=== PATIENT | female | born 1990 | race Hispanic/Latino ===

== ENCOUNTER 2020-07-21 19:45 | Emergency (ER) | payer OTHER, SELFPAY ==
[2020-07-21 20:03] VITALS: BP 130/71; PULSE 93; RESP 20; TEMP 36.4; O2SAT 100
[2020-07-21 20:06] VITALS: BP 130/71; PULSE 93; RESP 20; TEMP 36.4; O2SAT 100
--- NOTE | 2020-07-21 20:28 | ED.HA ---
HPI - Headache General Chief Complaint: Headache Stated Complaint: Head Pain,Dizzy Time Seen by Provider: 07/21/20 20:12 Source: patient and RN notes reviewed Mode of arrival: ambulatory Limitations: language barrier (Patient refused use of infantry weapons crewmember. ) History of Present Illness HPI Narrative: Patient presents today complaining of a 1 week history of frontal headache behind both of her eyes that extends to the left parietal area. Headache began after she was exposed to Lysol in both of her eyes while at work at [employer], a [employer]. Associated symptoms include dizziness, nausea, and photophobia. Pain is exacerbated in the eyes when she looks left or upward. Patient was initially seen by an eye doctor immediately following the injury and she was given a prescription for some prednisolone eyedrops, which she has been using. States the eyedrops are not providing any relief of symptoms. Reports she has also taken some Tylenol without relief. Currently rates her headache 01/20. Denies vomiting. States she can see well out of both eyes, but they are painful. She has another appointment with the same eye doctor in 2 days for follow-up. 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 This is a Workmen's Comp. claim. Related Data Home Medications Medication Instructions Recorded Confirmed loratadine 07/21/20 prednisolone 07/21/20 Allergies Allergy/AdvReac Type Severity Reaction Status Date / Time No Known Allergies Allergy Verified 07/21/20 19:53 Review of Systems Review of Systems: Narrative: CONSTITUTIONAL: Denies body aches, fever, chills, or sweats. EYES: Denies visual changes,or discharge. + Bilateral eye pain and redness, photophobia ENT: Denies rhinorrhea, congestion, sore throat, or otalgia. CARDIOVASCULAR: Denies chest pain, palpitations, or edema. RESPIRATORY: Denies cough or dyspnea. GASTROINTESTINAL: Denies abdominal pain, vomiting, or diarrhea. + Nausea GENITOURINARY: Denies dysuria or hematuria. SKIN: Denies rash, itching, or wounds. MUSCULOSKELETAL: Denies back pain, joint pain, or myalgia. NEUROLOGIC: Denies numbness, tingling, or weakness. + Headache PSYCH: Denies depression or anxiety. PMFSH Comments At time of signature, I have reviewed and agree with nursing past medical, surgical, social and family history unless otherwise noted. Please see nursing chart for further information. There is no relevant family history pertinent to the presenting complaint Exam Narrative: Exam Narrative: GENERAL: Well-appearing, well-nourished, and in no acute distress. HEAD: Normocephalic, atraumatic. EYES: EOMI. PERRL. Bilateral mildly injected conjunctiva. Lids and lashes normal. +photophobia. ENT: Mucous membranes pink and moist. Nares clear. No rhinorrhea. NECK: Normal AROM. Supple. No lymphadenopathy. CHEST: No respiratory distress. Clear to auscultation. HEART: Regular rate and rhythm. No murmur appreciated. Normal peripheral pulses. EXTREMITIES: Normal range of motion. No edema. SKIN: Warm, dry, no rash. Capillary refill normal. Normal skin turgor. NEURO: No focal deficits. Alert and oriented x3. Gait steady. PSYCH: Normal affect. No signs of depression or anxiety. Course Vital Signs Vital signs: Vital Signs Temperature 97.6 F 07/21/20 20:03 Pulse Rate 93 07/21/20 20:03 Respiratory Rate 20 07/21/20 20:03 Blood Pressure 130/71 07/21/20 20:03 Pulse Oximetry 100 07/21/20 20:03 Temperature 97.6 F 07/21/20 20:06 Pulse Rate 93 07/21/20 20:06 Respiratory Rate 20 07/21/20 20:06 Blood Pressure 130/71 07/21/20 20:06 Pulse Oximetry 100 07/21/20 20:06 Reviewed. Pt has been instructed to follow up with her PCP regarding her elevated blood pressure today. MDM - Headache Differential Diagnosis Differential diagnosis: Likely migraine, tension
== END 2020-07-21 20:36 | disposition home or self-care (01) ==
PROVIDERS: Emergency Provider Nurse Practitioner; PCP Registered Nurse
DX: R51.9 Headache, unspecified (principal)
CPT/HCPCS: 99203; G0463

== ENCOUNTER 2022-07-26 19:28 | Emergency (ER) | payer OTHER, SELFPAY ==
[2022-07-26 19:37] VITALS: BP 115/49; PULSE 67; RESP 16; TEMP 37.2; O2SAT 99
[2022-07-26 19:39] VITALS: BP 115/49; PULSE 67; RESP 16; TEMP 37.2; O2SAT 99
--- NOTE | 2022-07-26 19:42 | ED.ABDPAIN ---
HPI - Abdominal Pain General Chief Complaint: Abdominal Pain Stated Complaint: Left Abdomen Pain Time Seen by Provider: 07/26/22 19:42 Source: patient and RN notes reviewed Mode of arrival: ambulatory Limitations: no limitations History of Present Illness HPI narrative: 32-year-old female presented for complaint of left abdominal pain worsening over the past 3 days. Endorses pain is constant, described as burning, rates 9/10. Pain is to the left upper abdomen and radiates to the back. She has had constipation for the last 2 days, diarrhea today with decreased appetite. She denies urinary complaints, nausea, vomiting, fevers or chills. She denies sick contacts. She contact her PCP today, labs were ordered but not completed, pt was prescribed antibiotics and omeprazole, has not picked up the prescriptions. LMP 05/08/23. Patient is primarily English speaking, cigar head puncher services utilized. Related Data Allergies Allergy/AdvReac Type Severity Reaction Status Date / Time No Known Allergies Allergy Verified 07/26/22 19:36 Review of Systems Review of Systems: CONSTITUTIONAL: Denies body aches, fever, chills ENT: Denies rhinorrhea, congestion CARDIOVASCULAR: Denies chest pain, palpitations, or edema. RESPIRATORY: Denies cough or dyspnea. GASTROINTESTINAL: Endorses abdominal pain, diarrhea. Denies nausea, vomiting GENITOURINARY: Reports CVA tenderness. Denies dysuria, hematuria SKIN: Denies rash, itching, or wounds. MUSCULOSKELETAL: Denies back pain, joint pain, or myalgia. NEUROLOGIC: Denies headache, numbness, tingling, or weakness. All systems reviewed & are unremarkable except as noted in HPI and below PMFSH Past Medical History Medical History (Updated 07/26/22 @ 20:02 by Martha Ba, LATOYA) No pertinent past medical history Comments At time of signature, I have reviewed and agree with nursing past medical, surgical, social and family history unless otherwise noted. Please see nursing chart for further information. There is no relevant family history pertinent to the presenting complaint Exam Narrative: GENERAL: Appears in pain, in no acute distress. EYES: EOMI. Conjunctivae normal. ENT: Mucous membranes pink and moist. CHEST: No respiratory distress. Clear to auscultation. HEART: Regular rate and rhythm. No murmur appreciated. Normal peripheral pulses. ABDOMEN: abd soft, nondistended, normal active bowel sounds. Guarding abd. Tender abdomen to LUQ, RUQ, and left CVA tenderness; No rebound tenderness or asymmetry EXTREMITIES: Normal range of motion. No edema. SKIN: Warm, dry, no rash. Capillary refill normal. Normal skin turgor. NEURO: No focal deficits. Alert and oriented x3. PSYCH: Normal affect. Course Course Emergency Course: Patient is aware of diagnosis, understands and agrees to treatment plan. Anticipatory guidance given. Portions of this record may have been created with voice recognition software Level of Care: Express Care Visit Vital Signs Vital signs: Vital Signs Temperature 98.9 F 07/26/22 19:37 Pulse Rate 67 07/26/22 19:37 Respiratory Rate 16 07/26/22 19:37 Blood Pressure 115/49 L 07/26/22 19:37 Pulse Oximetry 99 07/26/22 19:37 Oxygen Delivery Room Air 07/26/22 19:37 Temperature 98.9 F 07/26/22 19:39 Pulse Rate 67 07/26/22 19:39 Respiratory Rate 16 07/26/22 19:39 Blood Pressure 115/49 L 07/26/22 19:39 Pulse Oximetry 99 07/26/22 19:39 Oxygen Delivery Room Air 07/26/22 19:39 Transfer Transfered to: [place] Transportation: Other (Private vehicle) Transfer rationale: Pt is agreeable to transfer. Requests transfer to [facility] via private vehicle. Risks of transportation reviewed with pt including injury, worsening of condition and . v/u. Friend will be driving pt; Report called to hospital, spoke with Dr Campo accepting physician. Pt is in stable condition at time of transfer. Advised to remain NPO and go directly t
== END 2022-07-26 20:10 | disposition home or self-care (01) ==
PROVIDERS: Emergency Provider Nurse Practitioner Family; PCP Registered Nurse
DX: R10.12 Left upper quadrant pain (principal); R10.11 Right upper quadrant pain
CPT/HCPCS: 81003; 81025; 99212; G0463

== ENCOUNTER 2022-07-26 20:24 | Emergency (ER) | payer OTHER, SELFPAY ==
--- NOTE | ~2022-07-26 | CT_ITS ---
CT of the Abdomen and Pelvis: Indication: Abdominal pain Technique: 2.5 mm axial scans were obtained through the abdomen and pelvis following intravenous adm inistration of 100 cc of Omnipaque 350. Dose reduction technique was used on this scan by utilizing a utomated exposure control and iterative reconstruction technique. The dose-length product (DLP) was 1 157.89 mGy-cm. Findings: Scans through the lung bases are unremarkable. The liver, spleen, pancreas, gallbladder, adrenals and kidneys are within normal limits. No evidence of aortic aneurysm. No lymphadenopathy. No bowel obstruction or bowel wall thickening. There is no evidence to suggest acute appendicitis. Images through the pelvis were performed. Urinary bladder unremarkable. 2.4 cm right ovarian cyst pre sent. Impression: No significant abnormalities seen. Reviewed, dictated and finalized at location . Impression: No significant abnormalities seen.
[2022-07-26 21:03] VITALS: BP 104/67; PULSE 94; RESP 18; TEMP 36.8; O2SAT 99
[2022-07-26 21:24] LABS: Basophils Percent Auto 0.5 % (0.2-1.2); Eosinophils Absolute Auto 0.2 K/mm3 (0-0.3); Eosinophils Percent Auto 1.9 % (0-4.4); Hematocrit 40.6 % (37.0-47.0); Hemoglobin 13.2 g/dL (12.0-15.0); Immature Granulocyte Absolute 0.02 K/mm3 (0.00-0.031); Immature Granulocyte Percent A 0.2 % (0-0.5); Mean Corpuscular HGB Conc 32.5 g/dl (32-36); Mean Corpuscular Hemoglobin 26.6 pg (26-34); Mean Corpuscular Volume 81.7 fl (80-100); Mean Platelet Volume 9.4 fl (7.4-10.4); Monocytes Absolute Auto 0.6 K/mm3 (0.1-0.6); Monocytes Percent Auto 6.9 % (2.6-8.5); Neutrophils Absolute Auto 4.8 K/mm3 (1.3-6.7); Neutrophils Percent Auto 54.5 % (45.5-73.1); Platelet Count Result 280 k/mm3 (150-375); Red Blood Count 4.97 M/mm3 (4.2-5.4); Red Cell Distribution Width 14.4 % (11.5-14.5); White Blood Count 8.9 K/mm3 (4.5-10.0)
[2022-07-26 21:44] LABS: Alanine Aminotransferase 24 U/L (6-35); Albumin Level 4.7 g/dL (3.5-5.1); Alkaline Phosphatase 79 U/L (38-126); Anion Gap 6 mmol/L (8-16); Aspartate Amino Transferase 24 U/L (14-36); Bilirubin,Total 0.8 mg/dL (0.2-1.3); Blood Urea Nitrogen 10 mg/dL (7-17); Calcium 9.5 mg/dL (8.4-10.2); Carbon Dioxide 27 mmol/L (22-30); Chloride 102 mmol/L (98-107); Estimated CRCL calculation 139 ml/min; Estimated Glomerular Filt Rate > 60; Glucose 90 mg/dL (65-110); Lipase 66 U/L (23-300); Potassium 3.8 mmol/L (3.4-5.0); Sodium 135 mmol/L (137-145)
[2022-07-26 23:30] VITALS: BP 115/61; PULSE 78; RESP 18; O2SAT 100
[2022-07-27] VITALS (10 sets, daily range): BP systolic 111–123; BP diastolic 69–79; PULSE 69–84; RESP 18–20; TEMP 36.6; O2SAT 99–100
[2022-07-27] MEDS: SODIUM CHLORIDE 0.9% IV 1,000 ML 999 ML IV CONT (01:21)
--- NOTE | 2022-07-27 01:28 | ED.ABDPAIN ---
HPI - Abdominal Pain General Chief Complaint: Abdominal Pain Stated Complaint: abd pain Time Seen by Provider: 07/27/22 00:04 Source: patient Mode of arrival: ambulatory Limitations: no limitations and language barrier History of Present Illness HPI narrative: Patient is a 32-year-old female who presents to the ED with reports of LUQ abdominal pain. Patient is Turkish-speaking. Klip low pressure kettle operator was utilized for assistance with translation. Patient reports having pain in her left upper abdomen for the last 3 days. Pain is intermittent. Denies any significant aggravating or alleviating factors of pain. She has not tried anything for the pain. She does also report having diarrhea today and frequent chills, denies any fever, nausea, vomiting, urinary symptoms, rectal bleeding, melena, cough or cold symptoms. Patient has never had similar pain before. Related Data Allergies Allergy/AdvReac Type Severity Reaction Status Date / Time No Known Allergies Allergy Verified 07/26/22 21:15 Review of Systems Review of Systems: CONSTITUTIONAL: Denies fever, chills, or sweats. ENT: Denies rhinorrhea, congestion, sore throat. CARDIOVASCULAR: Denies chest pain. RESPIRATORY: Denies cough or dyspnea. GASTROINTESTINAL: See HPI. GENITOURINARY: Denies dysuria or hematuria. SKIN: Denies rash or itching. MUSCULOSKELETAL: Denies back pain, joint pain, or myalgia. NEUROLOGIC: Denies headache, numbness, or weakness. All systems reviewed & are unremarkable except as noted in HPI and below PMFSH Past Medical History Medical History No pertinent past medical history Surgical History Surgical History No pertinent past surgical history Social History Social History (Updated 07/27/22 @ 01:44 by Amirah Gannon PA-C) Smoking status: Never smoker Exam Narrative: GENERAL: Well appearing, morbidly obese, non-toxic, in no acute distress. HEAD: Normocephalic, atraumatic. NECK: Supple. No adenopathy, no masses. RESPIRATORY: Airway patent, respirations nonlabored. Clear to auscultation bilaterally, no rales, rhonchi, wheezing. CARDIOVASCULAR: Regular rate and rhythm without murmurs, rubs, or gallops. Peripheral pulses 2+ and equal bilaterally. ABDOMINAL: Soft, tenderness throughout left upper quadrant, left lower quadrant, epigastric region - tenderness worst in LUQ. No rebound. Nondistended, no hepatosplenomegaly. Normoactive BS. MUSCULOSKELETAL: Moves all extremities. Strength/ROM intact without gross deformities. SKIN: Warm, dry, normal color. No rashes. NEURO: A&O X3. Speech clear. Cranial nerves II-XII grossly intact. Steady gait. No ataxic movements. PSYCHIATRIC: Appropriate mood and affect. Normal interaction. Course Vital Signs Vital signs: Vital Signs Temperature 98.2 F 07/26/22 21:03 Pulse Rate 94 07/26/22 21:03 Respiratory Rate 18 07/26/22 21:03 Blood Pressure 104/67 07/26/22 21:03 Pulse Oximetry 99 07/26/22 21:03 Oxygen Delivery Room Air 07/26/22 21:03 Temperature 98 F 07/27/22 04:35 Pulse Rate 69 07/27/22 04:35 Respiratory Rate 18 07/27/22 04:35 Blood Pressure 123/79 07/27/22 04:35 Pulse Oximetry 99 07/27/22 04:35 Oxygen Delivery Room Air 07/26/22 21:03 MDM - Abdominal Pain MDM Narrative Medical decision making narrative: Patient presented to ED with 3-day history of left upper quadrant abdominal pain. Vitals stable upon arrival. Patient in no acute distress. Patient with diffuse tenderness on exam, worst in left upper quadrant. CBC without leukocytosis. CMP unremarkable. Stable kidney function. Normal lipase. UA with 2+ leuk esterase, 1+ urine bacteria, 0-5 WBC. Sent for culture. Patient without urinary symptoms at this time. Low suspicion for UTI. CT scan of abdomen pelvis obtained and without acute findings. Did show small right ovarian cy
[2022-07-27 01:58] LABS: Appearance Urine Clear (Clear); Bacteria Urine 1+ /hpf; Bilirubin Urine Negative (Negative); Blood Urine Negative (Negative); Color Urine Yellow (Yellow); Glucose Urine UA Negative (Negative); Ketones Urine Negative (Negative); Leukocyte Esterase Ur 2+ LEU/UL (Negative); Need Manual Microscopic Reviewed; Nitrate Urine Negative (Negative); Non Pathogenic Casts 0-2; Protein Urine Negative (Negative); RBC Urine 0-2 /hpf (0-2); Squamous Epithelial Cell Urine Occasional /hpf (Few); WBC Urine 0-5 /hpf
[2022-07-27 02:00] LABS: Add Urine Microscopic? YES
[2022-07-27] MEDS: BELLADONNA ALK/PHENOB ELIX 10 ML, MAG HYDROX/ALUMINUM HYD/SIMETH 30 ML, LIDOCAINE HCL 2... PO (02:12)
[2022-07-27 04:36] LABS: Pregnancy On Board Control Positive; Urine Pregnancy Test Negative
== END 2022-07-27 04:36 | disposition home or self-care (01) ==
PROVIDERS: Emergency Medicine; Emergency Provider Physician Assistant; PCP Registered Nurse
DX: R10.12 Left upper quadrant pain (principal); K21.9 Gastro-esophageal reflux disease without esophagitis; N83.201 Unspecified ovarian cyst, right side
CPT/HCPCS: 36415; 74177; 80053; 81001; 81025; 83690; 85025; 96365; 99284; A9270; J0131; J7030; Q9967

== ENCOUNTER 2023-04-12 17:23 | Emergency (ER) | payer OTHER, SELFPAY ==
[2023-04-12 17:33] VITALS: BP 126/61; PULSE 76; RESP 16; TEMP 36.7; O2SAT 99
--- NOTE | 2023-04-12 17:48 | PC.NURSE ---
1742 given gown and sheet. wound/bump to left, lat. upper leg. daughter at bedside and said yes when offered [facility] intrepreter.
--- NOTE | 2023-04-12 18:33 | ED.SKABFB ---
HPI - Skin/Abscess/Foreign Bdy General Chief complaint: Skin/Abscess/Foreign Body Stated complaint: Bump On Left Leg Time Seen by Provider: 04/12/23 18:06 Source: patient and hand packager Mode of arrival: ambulatory Limitations: no limitations History of Present Illness HPI narrative: Patient presents today complaining of a painful bump and redness to the left thigh x5 days that has been worsening since onset. She has been taking ibuprofen without relief. No history of staph infections or boils. Related Data Allergies Allergy/AdvReac Type Severity Reaction Status Date / Time No Known Allergies Allergy Verified 07/26/22 21:15 Review of Systems Review of Systems: CONSTITUTIONAL: Denies body aches, fever, chills, or sweats. EYES: Denies visual changes, redness, or discharge. ENT: Denies rhinorrhea, congestion, sore throat, or otalgia. CARDIOVASCULAR: Denies chest pain, palpitations, or edema. RESPIRATORY: Denies cough or dyspnea. GASTROINTESTINAL: Denies abdominal pain, nausea, vomiting, or diarrhea. GENITOURINARY: Denies dysuria or hematuria. SKIN: + painful lump to left leg MUSCULOSKELETAL: Denies back pain, joint pain, or myalgia. NEUROLOGIC: Denies headache, numbness, tingling, or weakness. PSYCH: Denies depression or anxiety. [facility] Past Medical History Medical History (Reviewed 04/12/23 @ 18:34 by [place], [facility], ) No pertinent past medical history Surgical History Surgical History (Reviewed 04/12/23 @ 18:34 by La Bustillo, [facility], ) No pertinent past surgical history Social History Social History (Reviewed 04/12/23 @ 18:34 by [place] Bustillo, [facility], ) Smoking status: Never smoker Comments At time of signature, I have reviewed and agree with nursing past medical, surgical, social and family history unless otherwise noted. Please see nursing chart for further information. There is no relevant family history pertinent to the presenting complaint Exam Narrative: GENERAL: Well-appearing, well-nourished, and in no acute distress. HEAD: Normocephalic, atraumatic. EYES: EOMI. No redness or drainage. Conjunctivae normal. ENT: Mucous membranes pink and moist. NECK: Normal AROM. CHEST: No respiratory distress. EXTREMITIES: Normal range of motion. No edema. SKIN: Warm, dry, no rash. Capillary refill normal. Normal skin turgor. 8x 10 cm area of erythema to the left lateral thigh with 2 x 2 cm area of induration and fluctuance to the center. NEURO: No focal deficits. Alert and oriented x3. Gait steady. PSYCH: Normal affect. No signs of depression or anxiety. Course Course Level of Care: Express Care Visit Vital Signs Vital signs: Vital Signs Temperature 98.1 F 04/12/23 17:33 Pulse Rate 76 04/12/23 17:33 Respiratory Rate 16 04/12/23 17:33 Blood Pressure 126/61 04/12/23 17:33 Pulse Oximetry 99 04/12/23 17:33 Oxygen Delivery Room Air 04/12/23 17:33 Temperature 98.1 F 04/12/23 17:33 Pulse Rate 76 04/12/23 17:33 Respiratory Rate 16 04/12/23 17:33 Blood Pressure 126/61 04/12/23 17:33 Pulse Oximetry 99 04/12/23 17:33 Oxygen Delivery Room Air 04/12/23 17:33 Reviewed Procedures Abscess I/D lower extremity: Date of Incision: 04/12/23 Time of Incision: 18:35 Side (if applicable): left Sedation/analgesia: none Local Anesthetic: lidocaine 1% Amount of anesthesia used (mL): 1 Technique: needle aspiration Amount of fluid expressed (mL): 0.5 Abcess I&D Additional Comments: Dressed with Band-Aid MDM - Skin/Abscess/Foreign Bdy MDM Narrative Medical decision making narrative: Minimal drainage with I&D. Will treat patient with Keflex for the cellulitis. Patient agrees with plan. Anticipatory guidance given. Differential Diagnosis Differential diagnosis: Likely abscess of skin or subcutaneous tissue and cellulitis Critical Care Time Critical Care Time Critical Care T
== END 2023-04-12 18:41 | disposition home or self-care (01) ==
PROVIDERS: Emergency Provider Nurse Practitioner; PCP Registered Nurse
DX: L03.116 Cellulitis of left lower limb (principal); L02.416 Cutaneous abscess of left lower limb
CPT/HCPCS: 10160; 99213; G0463

== ENCOUNTER 2023-08-27 10:15 | Outpatient (CLI) | payer OTHER, SELFPAY ==
--- NOTE | ~2023-08-27 | US_ITS ---
EXAMINATION:US venous doppler LE BI INDICATION:Varicose veins TECHNIQUE: Multiple grayscale, color flow and Doppler images of the right and left lower extremity de ep venous systems were obtained and reviewed. COMPARISON:No prior studies for comparison. FINDINGS: The common femoral, superficial femoral and popliteal veins demonstrate normal respiratory variation, augmentation and compressibility. Color flow is also seen within the posterior tibial, pe roneal, greater saphenous and profunda veins. IMPRESSION: 1: No lower extremity deep venous thrombosis. Reviewed, dictated and finalized at location B.
== END 2023-08-27 10:16 | disposition home or self-care (01) ==
LOC: ANHIMG 10:15
PROVIDERS: PCP Registered Nurse; Visit Provider Registered Nurse
DX: I83.90 Asymptomatic varicose veins of unspecified lower extremity (principal)
CPT/HCPCS: 93970